=== PATIENT | male | born 1940 | race Caucasian/White ===

== ENCOUNTER 2021-02-25 20:50 | Inpatient (IN) | payer MEDICARE, OTHER ==
[~2021-02-25] VITALS: Ht 172.7 cm; Wt 68.0 kg
[2021-02-25 21:27] LABS: HEMOGLOBIN 11.5 gm/dl (14.0-17.5); RED BLOOD COUNT 3.69 M/UL (4.20-5.50); WHITE BLOOD COUNT 5.1 K/UL (4.5-11.0)
[2021-02-25 21:55] LABS: BUN/CREATININE RATIO 15 (0-10)
[2021-02-27 09:24] LABS: HEMOGLOBIN 12.3 gm/dl (14.0-17.5)
[2021-02-27 09:25] LABS: RED BLOOD COUNT 4.08 M/UL (4.20-5.50); WHITE BLOOD COUNT 7.5 K/UL (4.5-11.0)
[2021-02-27 09:42] LABS: BUN/CREATININE RATIO 19 (0-10)
[2021-02-28 05:08] LABS: BUN/CREATININE RATIO 20 (0-10)
[2021-03-02 04:25] LABS: BUN/CREATININE RATIO 21 (0-10)
[2021-03-03 07:34] LABS: BUN/CREATININE RATIO 23 (0-10)
[2021-03-05 07:57] LABS: BUN/CREATININE RATIO 23 (0-10)
[2021-03-06 08:17] LABS: BUN/CREATININE RATIO 23 (0-10)
[2021-03-07 09:39] LABS: BUN/CREATININE RATIO 25 (0-10)
[2021-03-08 04:28] LABS: BUN/CREATININE RATIO 24 (0-10)
[2021-03-10 08:35] LABS: BUN/CREATININE RATIO 20 (0-10)
[2021-03-11 06:08] LABS: HEMOGLOBIN 11.5 gm/dl (14.0-17.5); RED BLOOD COUNT 3.72 M/UL (4.20-5.50); WHITE BLOOD COUNT 4.9 K/UL (4.5-11.0)
[2021-03-11 06:28] LABS: BUN/CREATININE RATIO 26 (0-10)
[2021-03-12 09:02] LABS: HEMOGLOBIN 12.5 gm/dl (14.0-17.5); RED BLOOD COUNT 4.04 M/UL (4.20-5.50); WHITE BLOOD COUNT 5.5 K/UL (4.5-11.0)
[2021-03-12 09:37] LABS: BUN/CREATININE RATIO 28 (0-10)
--- NOTE | 2021-03-12 11:50 | NUR ---
PATIENT ATTEMPTED TO CLIMB OUT OF BED. PATIENT BECAME COMBATIVE UPON REDIRECTION. PATIENT FOUND STANDING BESIDE OF BED. HOME CARE ADMINISTRATOR AND NURSE ATTEMPTED SEVERAL TIMES TO REDIRECT AND PLACE PATIENT BACK IN BED. DR. ROMEO VISITED PATIENT DURING EPISODE.
--- NOTE | 2021-03-12 17:41 | NUR ---
PATIENT CLIMBING OUT OF BED. COMBATIVE WITH NURSE AND BOX TOE BUFFER. KICKED NURSE IN RIGHT UPPER LEG AND PUNCHED BOX TOE BUFFER IN THE RIGHT ARM. REFUSES TO LAY DOWN.
[2021-03-13 08:11] LABS: BUN/CREATININE RATIO 32 (0-10)
[2021-03-14] MEDS ORDERED: ASPIRIN EC81 MG PO (10:34)
[2021-03-14] MEDS ORDERED: QUETIAPINE FUMA25 MG PO ×2 (10:34)
[2021-03-14] MEDS ORDERED: DIPHENHYDR50 MG/1 M1 IV (10:34)
[2021-03-14] MEDS ORDERED: CYANOCOBAL1000 MCG/1 SC (10:34)
[2021-03-14] MEDS ORDERED: LIPITOR20 MG PO (10:47)
[2021-03-14] MEDS ORDERED: DIVALPROEX SOD125 MG PO (10:47)
[2021-03-14] MEDS ORDERED: THERAGRAN M TAB1 EA PO (10:47)
[2021-03-14] MEDS ORDERED: ALPRAZOLAM0.5 MG PO (10:47)
[2021-03-14] MEDS ORDERED: MELATONIN3 MG PO (10:47)
== END 2021-03-14 15:31 | DRG 65 ==
LOC: ER1 20:50 → M/S 23:27 → CDU 23:27 → M/S 23:27
PROVIDERS: Internal Medicine; Physician Assistant; Student in an Organized Health Care Education/Training Program; ADMIT Internal Medicine Infectious Disease
PROC: B24BZZZ Ultrasonography of Heart with Aorta (ICD-10-PCS; principal; 2021-02-26)
DX: I63.9 Cerebral infarction, unspecified (principal); I42.9 Cardiomyopathy, unspecified; Z20.822 Contact with and (suspected) exposure to COVID-19; G30.9 Alzheimer's disease, unspecified; F02.80 Dementia in other diseases classified elsewhere, unspecified severity, without behavioral disturbance, psychotic disturbance, mood disturbance, and anxiety; I45.10 Unspecified right bundle-branch block; I34.0 Nonrheumatic mitral (valve) insufficiency; E53.8 Deficiency of other specified B group vitamins; I10 Essential (primary) hypertension; F17.210 Nicotine dependence, cigarettes, uncomplicated; R79.89 Other specified abnormal findings of blood chemistry; R13.10 Dysphagia, unspecified; I25.5 Ischemic cardiomyopathy; E87.6 Hypokalemia; Z91.14 Patient's other noncompliance with medication regimen; Z79.01 Long term (current) use of anticoagulants; Z79.82 Long term (current) use of aspirin; Z82.3 Family history of stroke; Z82.0 Family history of epilepsy and other diseases of the nervous system
CPT/HCPCS: ECHO; 36415; 70450; 70551; 71045; 72192; 80048; 80053; 81001; 82140; 82550; 82553; 82607; 83735; 83874; 84132; 84443; 84484; 85025; 92526; 92610; 93306; 96372; 96376; 97110-GP-CQ; 97161; 97167; 97530; 97530-GP-CQ; 99285; G0378; J0360; J0696; J1200; J1630; J1650; J2060; J3420; J3480; J3486; J7030; U0002